=== PATIENT | male | born 1985 | race Two or more races ===

== ENCOUNTER 2020-10-03 09:27 | Emergency (ER) | payer SELFPAY ==
[~2020-10-03] VITALS: Ht 177.8 cm; Wt 93.0 kg
--- NOTE | 2020-10-03 10:15 | NUR ---
patient came in to the er c/o chest sharp pain since last night 8/10 pain scale, cough and runny nose. On room air, breathing evenly and unlabored. Kept comfortable, will continue to monitor accordingly.
[2020-10-03 10:17] LABS: BASOPHILS % (AUTO) 0.4 % (0.0-2.0); EOSINOPHILS % (AUTO) 0.7 % (0.0-6.0); HEMATOCRIT 43 % (39-51); HEMOGLOBIN 14.5 g/dL (13.5-17.5); LYMPHOCYTES # (AUTO) 1.4 /CMM (0.8-4.8); LYMPHOCYTES % (AUTO) 14.9 % (20.0-44.0); MEAN CORPUSCULAR HGB CONC 34 g/dl (31.0-36.0); MEAN CORPUSCULAR VOLUME 85 fL (80-96); MONOCYTES # (AUTO) 0.8 /CMM (0.1-1.30); MONOCYTES % (AUTO) 8.5 % (2.0-12.0); NEUTROPHILS # (AUTO) 7.3 /CMM (1.8-8.9); NEUTROPHILS % (AUTO) 75.5 % (43.0-81.0); PLATELET COUNT (AUTO) 310 /CMM (150-450); RED BLOOD CELL COUNT(AUTO) 5.08 MIL/uL (4.5-6.0); WHITE BLOOD COUNT (AUTO) 9.7 K/uL (4.3-11.0)
[2020-10-03 10:26] LABS: CALCIUM, SERUM 9.5 mg/dL (8.5-10.1); CARBON DIOXIDE 25 mmol/L (21-32); CHLORIDE 102 mmol/L (98-107); CREATININE 0.9 mg/dL (0.6-1.3); GLUCOSE 195 mg/dL (74-106); POTASSIUM 3.8 mmol/L (3.5-5.1); SODIUM SERUM 138 mmol/L (136-145)
[2020-10-03 10:30] LABS: UREA NITROGEN, BLOOD 13 mg/dL (7-18)
[2020-10-03] MEDS ORDERED: IV NS 0.9% 250 ML IV ONE (10:54)
[2020-10-03] MEDS ORDERED: CT SWABBABLE VALVE TRANS SET 1 EA INFUS.SET MC ONE (10:54)
[2020-10-03] MEDS ORDERED: IOHEXOL-350 100 ML VIAL IV ONE (10:54)
[2020-10-03] MEDS ORDERED: MORPHINE SULFATE INJ 2 MG/ML DISP.SYRIN IV ONE (11:00)
[2020-10-03] MEDS ORDERED: IV NS 0.9% 500 ML BAG IV ONE (11:00)
[2020-10-03 11:50] VITALS: BP 126/88
--- NOTE | 2020-10-03 12:00 | NUR ---
Patient discharged to home in stable condition. Written and verbal after care instructions given. Patient verbalizes understanding of instruction.IV removed. Catheter intact and site benign. Pressure and 4x4 applied to site. No bleeding noted. Pt ambulatory with a steady gait
== END 2020-10-03 12:00 | disposition home or self-care (01) ==
LOC: ER 09:32
DX: R07.89 Other chest pain (principal); E11.9 Type 2 diabetes mellitus without complications
CPT/HCPCS: 36415; 71045; 71275; 80048; 84484; 85025; 93005; 99285; J7050; Q9967